=== PATIENT | female | born 1965 | race African-American/Black ===

== ENCOUNTER 2018-05-28 10:29 | Emergency (ER) | payer OTHER | END 2018-05-28 11:33 | disposition home or self-care (01) | LOC: ERS 10:29 | DX: S66.911A Strain of unspecified muscle, fascia and tendon at wrist and hand level, right hand, initial encounter (principal); I10 Essential (primary) hypertension; Z79.899 Other long term (current) drug therapy; V69.9XXA Occupant (driver) (passenger) of heavy transport vehicle injured in unspecified traffic accident, initial encounter | CPT/HCPCS: 99283 ==